=== PATIENT | female | born 2000 | race Caucasian/White ===

== ENCOUNTER → 2024-04-08 | Outpatient (REF) | payer BC | LOC: M PLALAB 08:30 | PROVIDERS: ATTEND Advanced Practice Midwife | DX: Z53.9 Procedure and treatment not carried out, unspecified reason (principal) ==

== ENCOUNTER → 2024-04-27 | Outpatient (CLI) | payer BC ==
[2024-04-27 17:17] LABS: HEMATOCRIT 41.2 % (36.0-47.0); HEMOGLOBIN 13.7 g/dl (12.0-15.5); MEAN CORPUSCULAR HEMOGLOBIN 30.9 pg (27.0-33.0); MEAN CORPUSCULAR HGB CONC 33.3 g/dl (32.0-36.5); PLATELET COUNT, AUTOMATED 249 10^3/uL (150-450); RED BLOOD COUNT 4.43 10^6/uL (4.00-5.40); WHITE BLOOD COUNT 10.8 10^3/uL (4.0-10.0)
[2024-04-27 18:09] LABS: HIV 1&2 SCREEN NEGATIVE (NEGATIVE)
[2024-04-27 18:17] LABS: HEPATITIS C VIRUS ABY INDEX < 0.02 INDEX (<0.8)
[2024-04-27 18:32] LABS: GC DNA AMPLIFICATION NEGATIVE (NEGATIVE)
== END ==
LOC: M PLALAB 13:22
PROVIDERS: ATTEND Advanced Practice Midwife
DX: Z34.01 Encounter for supervision of normal first pregnancy, first trimester (principal)

== ENCOUNTER → 2024-06-21 | Outpatient (CLI) | payer BC | LOC: M WHC 06:38 | PROVIDERS: ATTEND Obstetrics & Gynecology | DX: Z34.92 Encounter for supervision of normal pregnancy, unspecified, second trimester (principal) ==

== ENCOUNTER → 2024-10-18 | Outpatient (REF) | payer BC | LOC: M SFHCWAGY 12:55 | PROVIDERS: ATTEND Advanced Practice Midwife | DX: Z34.03 Encounter for supervision of normal first pregnancy, third trimester (principal) ==

== ENCOUNTER 2024-11-09 11:57 | Inpatient (IN) | payer BC ==
[~2024-11-09] VITALS: Ht 172.7 cm; Wt 96.0 kg
[2024-11-09] VITALS (34 sets, daily range): BP systolic 103–159; BP diastolic 53–106; O2SAT 99
[2024-11-09] MEDS ORDERED: UNIS25TA5 PO (12:22)
[2024-11-09] MEDS ORDERED: PRENTAB9 PO (12:22)
[2024-11-09] MEDS ORDERED: CARBOPROST TROMETHAMINE 250 MCG/ML AMP IM PRN (12:30)
[2024-11-09] MEDS ORDERED: LIDOCAINE 1% MDV 20 ML VIAL INFIL PRN (12:30)
[2024-11-09] MEDS ORDERED: METHYLERGONOVINE MALEATE 0.2 MG/ML 1 ML VIAL IM PRN (12:30)
[2024-11-09] MEDS ORDERED: OXYTOCIN INJ 10UNITS/ML 1ML VIAL IM PRN (12:30)
[2024-11-09] MEDS ORDERED: OXYTOCIN DRIP 30 UNITS in IV 1 EA IV PRN (12:30)
[2024-11-09] MEDS ORDERED: HOME MED LIST COMPLETE! XX SCH (13:00)
[2024-11-09 13:15] LABS: PLATELET COUNT, AUTOMATED 166 10^3/uL (150-450)
[2024-11-09 14:02] LABS: HIV 1&2 SCREEN NEGATIVE (NEGATIVE)
[2024-11-09] MEDS: LACTATED RINGER'S 1000 ML IV STA (14:35)
[2024-11-09] MEDS ORDERED: EPIDURAL/PCA KEYS XX PRN (15:10)
[2024-11-09] MEDS ORDERED: LR 500 ML IV PRN (15:10)
[2024-11-09] MEDS ORDERED: diphenhydrAMINE 50 MG/ML VIAL IV PRN (15:10)
[2024-11-09] MEDS ORDERED: NALOXONE INJ 0.4 MG/1 ML VIAL IV PRN (15:10)
[2024-11-09] MEDS: FENTANYL/ROPIVACAINE/NACL BAG 100 ML EPIDURAL SCH (15:52)
[2024-11-09 16:29] LABS: HEPATITIS C VIRUS ABY INDEX < 0.02 INDEX (<0.8)
[2024-11-09] MEDS: LR 1,000 ML IV SCH (18:30)
[2024-11-09] MEDS ORDERED: LR 1,000 ML IV SCH (19:30)
[2024-11-09] MEDS: OXYTOCIN DRIP 30 UNITS in IV 1 EA IV SCH (19:41)
[2024-11-09] MEDS: ONDANSETRON 4MG 2ML VIAL IV PRN (19:59)
[2024-11-09] MEDS: TRANEXAMIC ACID INJection 1,000 MG in NS 100 ML IV PRN (20:44)
[2024-11-09] MEDS: OXYTOCIN DRIP 30 UNITS in IV 1 EA IV PRN (20:44)
[2024-11-09] MEDS ORDERED: DIBUCAINE 1% OINTMENT 30 GM TOP PRN (21:10)
[2024-11-09] MEDS ORDERED: METHYLERGONOVINE MALEATE 0.2 MG TAB PO PRN (21:10)
[2024-11-09] MEDS ORDERED: IBUPROFEN 800 MG TAB PO PRN (21:10)
[2024-11-09] MEDS ORDERED: OXYTOCIN DRIP 30 UNITS in IV 1 EA IV SCH (21:10)
[2024-11-09] MEDS ORDERED: IBUPROFEN 600 MG TAB PO PRN (21:10)
[2024-11-09] MEDS ORDERED: ACETAMINOPHEN 325 MG TAB PO PRN (21:10)
[2024-11-09] MEDS ORDERED: ACETAMINOPHEN 500 MG TAB PO PRN (21:10)
[2024-11-09 22:38] LABS: LDH LACTATE DEHYDROGENASE 239 U/L (120-246)
[2024-11-09 22:39] LABS: ALT/SGPT 21 U/L (7.0-40); AST/SGOT 25 U/L (<34); CREATININE FOR GFR 0.62 MG/DL (0.55-1.30); GLOMERULAR FILTRATION RATE > 90.0 (>60)
[2024-11-10 05:47] VITALS: BP 127/71; O2SAT 99
[2024-11-10] MEDS: PRENATAL VITAMINS CHEWABLE TABLET PO SCH (08:59)
[2024-11-10] MEDS: DOCUSATE SODIUM 100 MG CAPSULE PO PRN (08:59)
[2024-11-10 17:43] VITALS: BP 134/78; O2SAT 100
[2024-11-10] MEDS: RHOGAM 300MCG (1500IU) INJ IM SCH (22:26)
[2024-11-10] MEDS: MEASLES,MUMPS,RUBELLA VACCINE INJ (MMR-II) SC.IMMUN ONE (22:26)
[2024-11-11 06:00] VITALS: BP 130/84; O2SAT 99
== END 2024-11-11 11:53 | disposition home or self-care (01) | DRG 560 ==
LOC: M LDI 11:57 → M OBS 23:33
PROVIDERS: ADMIT Advanced Practice Midwife; ATTEND Advanced Practice Midwife
PROC: 10E0XZZ Delivery of Products of Conception, External Approach (ICD-10-PCS; principal; 2024-11-09)
PROC: 0HQ9XZZ Repair Perineum Skin, External Approach (ICD-10-PCS; 2024-11-09)
DX: O70.0 First degree perineal laceration during delivery (principal); Z37.0 Single live birth; Z3A.39 39 weeks gestation of pregnancy